=== PATIENT | female | born 1985 | race Caucasian/White ===

== ENCOUNTER 2024-03-13 12:38 | Emergency (ER) | payer OTHER, SELFPAY ==
[2024-03-13 12:38] VITALS: BMI 34.9
[2024-03-13 12:41] VITALS: BP 221/143
[2024-03-13 13:10] VITALS: BP 214/143
[2024-03-13 13:28] VITALS: BP 209/148
--- NOTE | 2024-03-13 13:57 | ED.GENMED ---
History of Present Illness
General
Chief Complaint: Blood Pressure Problem
Time Seen by Provider: 03/13/24 13:28
History of Present Illness
History of Present Illness:
38-year-old female presents the emergency department for evaluation of elevated blood pressure. She was referred from urgent care to the blood pressures exceeding 200/140. Patient states that she has no symptoms, she is been checking her blood
pressure frequently after purchasing a cuff to use at home for her . She denies any exertional chest pain or difficulty breathing. No history of hypertension but does not seek medical care routinely.
Review of Systems
Review of Systems
Allergies reviewed?: Yes
All Other Systems: ROS reviewed and negative except as documented in HPI and ROS
Phy Exam
Physical Exam
Physical Exam:
GEN: Well appearing, NAD, WDWN
HEENT: Oral mucosa moist, no scleral icterus
Cardiac: Regular rate and rhythm, no murmurs
Lung: No respiratory distress, no tachypnea
MSK: No gross deformity or injuries
Skin: Good color, no pallor or jaundice, no rashes
Neuro: AO x3, moves all extremities freely
Psych: Calm, cooperative
Course
Orders/Labs/Results
Orders:
Orders
03/13/24 12:47
Electrocardiogram (*1) Urgent
Reason for Study: Hypertension, Benign
EKG- Treatment ONCE
03/13/24 14:05
Basic Metabolic Panel Urgent
Complete Blood Count/No Diff Urgent
Abnormal Lab Results
03/13/24
14:05
MCH 32.2 H pg
(27.0-31.0)
Calcium 10.4 H mg/dl
(8.4-10.2)
03/13/24 14:05
03/13/24 14:05
Vital Signs
Initial and Last Documented VS:
Initial Vital Signs
Temp Pulse Resp BP Pulse Ox
98.2 F 104 18 221/143 96
03/13/24 12:41 03/13/24 12:41 03/13/24 12:41 03/13/24 12:41 03/13/24 12:41
Last Documented Vital Signs
Temp Pulse Resp BP Pulse Ox
98.2 F 87 18 202/141 99
03/13/24 12:41 03/13/24 14:09 03/13/24 14:09 03/13/24 14:09 03/13/24 14:09
MDM/Problems Addressed
MDM/Problems Addressed:
Patient is asymptomatic and labs are unremarkable. Will start her on amlodipine, given information for family residency outpatient clinic for close follow-up and further blood pressure management as needed
Comment
Comment:
EKG independently interpreted by me shows a sinus tachycardia rate of [address] changes concerning for ischemia, QTc of 461
*Critical Care Note
Total Time (30-74mins, 75-104mins- exclusive of procedures): Not Applicable
ED Attending Note
-
Portions of this chart may have been created with voice recognition software.� Occasional wrong word or��sound alike� substitutions may have occurred due to the inherent limitations of voice recognition software.
Discharge Plan
Departure
Patient Disposition: Home (Routine Discharge)
Date of Disposition: 03/13/24
Time of Disposition: 13:57
Patient with high blood pressure during this ER visit?: No
Discharge Problem:
Hypertension, uncontrolled
Instructions: High Blood Pressure (DC)
Prescriptions:
New
amlodipine 5 mg tablet
5 mg PO DAILY Qty: 30 3RF
Referrals:
NONE,* [Family Provider] -
Activity Restrictions/Additional Instructions:
Check your blood pressure once to twice per week
Follow up with a primary care physician in 3-4 weeks for repeat BP and medication adjustments as needed
[facility]
[address]
[place] [address]
[phone]
Interventions
Interventions:
*Risk Screen - Suicide Last Done: 03/13/24 12:41
*General Assessment Last Done: 03/13/24 12:41
*Neglect/Abuse Screening Last Done: 03/13/24 12:41
ED- Fall Risk Assessment Last Done: 03/13/24 13:08
*Nursing Disposition Last Done: 03/13/24 14:09
ED- Cardiac Assessment Last Done: 03/13/24 13:08
ED- Neurological Assessment Last Done: 03/13/24 13:08
ED- Pulmonary Assessment Last Done: 03/13/24 13:08
Discharge Date and Time
Discharge Date/Time: 03/13/24 14:09
Print Language: [place]
[2024-03-13 14:09] VITALS: BP 202/141
[2024-03-13 14:11] LABS: Hematocrit 42.8 % (37.0-47.0); Hemoglobin 14.9 g/dL (12.0-16.0); Mean Corp Hgb Conc. 34.8 g/dL (33.0-37.0); Mean Corpuscular Hgb 32.2 pg (27.0-31.0); Mean Corpuscular Volume 92.4 fL (81.0-99.0); Platelet Count 217 10^3/uL (130-400); Red Blood Cell Count 4.63 10^6/uL (4.20-5.40); Red Cell Dist. Width 12.4 % (11.5-14.5); White Blood Cell Count 6.1 10^3/uL (4.8-10.8)
[2024-03-13 14:23] LABS: Blood Urea Nitrogen 7 mg/dl (7-17); Calcium 10.4 mg/dl (8.4-10.2); Carbon Dioxide 25 mmol/L (22-30); Chloride 99 mmol/L (98-107); Estimated Creatinine Clearance > 125 ml/min; Glucose 99 mg/dl (70-99); Potassium 4.6 mmol/L (3.5-5.1); Sodium 138 mmol/L (135-145); eGFR > 60.00
== END 2024-03-13 14:09 | disposition home or self-care (01) ==
LOC: EMR 12:38
PROVIDERS: Physician Assistant; EMERGENCY PHYSICIAN Emergency Medicine
DX: I10 Essential (primary) hypertension (principal)
CPT/HCPCS: 99284; 80048; 85027; 93005